=== PATIENT | female | born 2000 | race Caucasian/White ===

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

== ENCOUNTER 2020-10-27 14:50 | Emergency (ER) | payer OTHER ==
[2020-10-27 14:53] VITALS: BMI 25.7
[2020-10-27 15:55] LABS: BASO % 0.6 % (0-2.0); EOS % 0.7 % (0-4.5); HEMATOCRIT 37.3 % (32.4-45.2); HEMOGLOBIN 12.6 GM/dL (10.7-15.3); LYMPH % 11.8 % (8-40); MCH 29.8 pg (25.7-33.7); MCHC 33.9 g/dl (32.0-36.0); MEAN PLT VOLUME 8.5 fl (7.5-11.1); NEUT % 80.9 % (42.8-82.8); PLATELET COUNT 273 K/MM3 (134-434); RBC 4.24 M/mm3 (3.60-5.2); RDW 14.8 % (11.6-15.6); WHITE BLOOD COUNT 8.2 K/mm3 (4.0-10.0)
[2020-10-27 16:21] LABS: POTASSIUM 4.9 mmol/L (3.5-5.1)
[2020-10-27 16:23] LABS: ALBUMIN 3.3 g/dl (3.4-5.0); BLOOD UREA NITROGEN 4.8 mg/dL (7-18); CALCIUM 8.6 mg/dL (8.5-10.1)
[2020-10-27 16:27] LABS: CREATININE 0.5 mg/dL (0.55-1.3)
[2020-10-27 16:28] LABS: BILIRUBIN,TOTAL 0.3 mg/dL (0.2-1); TOT PROT 7.4 g/dl (6.4-8.2)
[2020-10-27 16:57] LABS: EPI CELLS 10 /uL (0-25.1); HYALINE CASTS 0 /uL (0-3.1); PH,URINE 6.5 (5.0-8.0); URINE APPEARANCE CLEAR; URINE BACTERIA 490 /uL (0-1359); URINE BILIRUBIN NEGATIVE (NEGATIVE); URINE COLOR YELLOW; URINE GLUCOSE (UA) NEGATIVE (NEGATIVE); URINE KETONE 2+ (NEGATIVE); URINE LEUK ESTERASE TRACE (NEGATIVE); URINE NITRITE NEGATIVE (NEGATIVE); URINE PROTEIN NEGATIVE (NEGATIVE); URINE RBC 2 /uL (0-23.9); URINE WBC 11 /uL (0-25.8)
[2020-10-27 18:13] VITALS: BP 110/68; PULSE 72; TEMP 98.5
== END 2020-10-27 18:13 | disposition home or self-care (01) ==
LOC: JER 14:50
DX: O20.8 Other hemorrhage in early pregnancy (principal)
CPT/HCPCS: 36415; 76801-TC; 80053; 81003; 84702; 85025; 86850; 86900; 86901; 87086; 87186; 99284-25

== ENCOUNTER 2020-12-18 01:05 | Emergency (ER) | payer OTHER ==
[2020-12-18 01:19] VITALS: BP 122/79; PULSE 96; TEMP 98.9; BMI 24.4
[2020-12-18] MEDS ORDERED: CALCIUM CARBONATE SUSPENSION - 500 MG/5 ML ML PO ONE (02:07)
[2020-12-18] MEDS ORDERED: SODIUM CHLORIDE 0.9% 500 ML INFUS.BAG IV ONE (02:08)
[2020-12-18 02:31] LABS: HEMATOCRIT 32.9 % (32.4-45.2); HEMOGLOBIN 11.7 GM/dL (10.7-15.3); MCH 31.3 pg (25.7-33.7); MCHC 35.6 g/dl (32.0-36.0); MEAN PLT VOLUME 7.7 fl (7.5-11.1); PLATELET COUNT 294 K/MM3 (134-434); RBC 3.74 M/mm3 (3.60-5.2); RDW 13.9 % (11.6-15.6); WHITE BLOOD COUNT 9.3 K/mm3 (4.0-10.0)
[2020-12-18 02:37] LABS: INR 0.92 (0.83-1.09); PROTHROMBIN TIME (PATIENT) 11.3 SEC (9.7-13.0)
[2020-12-18 02:39] LABS: ACTIVATED PTT 24.8 SECONDS (25.2-36.5)
[2020-12-18 02:47] LABS: POTASSIUM 3.4 mmol/L (3.5-5.1)
[2020-12-18] MEDS ORDERED: ACETAMINOPHEN 325 MG TABLET (FP) PO ONE (02:47)
[2020-12-18 02:49] LABS: CALCIUM 8.8 mg/dL (8.5-10.1)
[2020-12-18 02:50] LABS: BLOOD UREA NITROGEN 5.5 mg/dL (7-18)
[2020-12-18 02:52] LABS: CREATININE 0.5 mg/dL (0.55-1.3)
[2020-12-18 02:54] LABS: BILIRUBIN,TOTAL 0.3 mg/dL (0.2-1); TOT PROT 6.7 g/dl (6.4-8.2)
[2020-12-18 02:57] LABS: N-TERMINAL BNP 33.5 pg/ml (5-125)
[2020-12-18] MEDS ORDERED: ACETAMINOPHEN 325 MG TABLET (FP) ONE (02:59)
[2020-12-18] MEDS ORDERED: POTASSIUM CHLORIDE TABS 20 MEQ TABLET.ER (FP) PO ONE ×2 (03:05→03:06)
[2020-12-18 04:00] LABS: EPI CELLS >36 /uL (0-25.1); HYALINE CASTS 1 /uL (0-3.1); PH,URINE 7.5 (5.0-8.0); URINE APPEARANCE CLOUDY; URINE BACTERIA 2024 /uL (0-1359); URINE BILIRUBIN NEGATIVE (NEGATIVE); URINE COLOR YELLOW; URINE GLUCOSE (UA) NEGATIVE (NEGATIVE); URINE KETONE NEGATIVE (NEGATIVE); URINE LEUK ESTERASE 2+ (NEGATIVE); URINE NITRITE NEGATIVE (NEGATIVE); URINE PROTEIN NEGATIVE (NEGATIVE); URINE RBC 5 /uL (0-23.9); URINE UROBILINOGEN 0.2 mg/dL (0.2-1.0); URINE WBC 155 /uL (0-25.8)
== END 2020-12-18 03:44 | disposition home or self-care (01) ==
LOC: JER 01:05
DX: R07.89 Other chest pain (principal)
CPT/HCPCS: 36415; 80053; 81003; 82550; 83880; 84484; 85027; 85610; 85730; 93005; 93010; 99284-25

== ENCOUNTER 2021-05-17 12:39 | Inpatient (IN) | payer OTHER ==
[2021-05-17] MEDS ORDERED: ELECTROLYTE-148 SOLN 1,000 ML IV SCH (13:15)
[2021-05-17] MEDS ORDERED: DINOPROSTONE 10 MG VAGINAL SUPPOSITORY VG ONE (13:17)
[2021-05-17] MEDS ORDERED: AMPICILLIN - 2 GM in SODIUM CHLORIDE 100 ML IVPB ONE (13:51)
[2021-05-17 13:54] VITALS: BMI 31.0
[2021-05-17] MEDS ORDERED: AMPICILLIN SODIUM 2 GM VIAL ONE (13:55)
[2021-05-17] MEDS ORDERED: OXYTOCIN 30 UNITS in 0.9% NS 30 UNIT/500 ML INFUS.BAG IVPB SCH (14:00)
[2021-05-17 14:03] LABS: BASO % 0.4 % (0-2.0); EOS % 0.2 % (0-4.5); HEMATOCRIT 33.6 % (32.4-45.2); HEMOGLOBIN 11.5 GM/dL (10.7-15.3); LYMPH % 10.6 % (8-40); MCHC 34.2 g/dl (32.0-36.0); MEAN CELL VOLUME 90.7 fl (80-96); MEAN PLT VOLUME 8.7 fl (7.5-11.1); MONO % 5.8 % (3.8-10.2); PLATELET COUNT 179 10^3/uL (134-434); WHITE BLOOD COUNT 9.9 K/mm3 (4.0-10.0)
[2021-05-17 14:08] LABS: INR 0.8 (0.83-1.09); PROTHROMBIN TIME (PATIENT) 9.8 SEC (9.7-13.0)
[2021-05-17 14:11] LABS: ACTIVATED PTT 24.5 SECONDS (25.2-36.5)
[2021-05-17 14:29] LABS: ALBUMIN 1.7 g/dl (3.4-5.0); BLOOD UREA NITROGEN 13.7 mg/dL (7-18); CALCIUM 7.7 mg/dL (8.5-10.1)
[2021-05-17 14:32] LABS: CREATININE 0.6 mg/dL (0.55-1.3); URIC ACID 5.2 mg/dL (2.6-7.2)
[2021-05-17 14:33] LABS: BILIRUBIN,TOTAL 0.2 mg/dL (0.2-1)
[2021-05-17 16:34] LABS: URINE APPEARANCE TURBID; URINE BILIRUBIN SMALL (NEGATIVE); URINE COLOR DK YELLOW; URINE GLUCOSE (UA) NEGATIVE (NEGATIVE); URINE KETONE TRACE (NEGATIVE)
[2021-05-17 16:35] LABS: EPI CELLS 139.3 /uL (0-25.1); HYALINE CASTS 131.22 /uL (0-3.1); PH,URINE 6.5 (5.0-8.0); URINE BACTERIA 3228.3 /uL (0-1359); URINE LEUK ESTERASE 1+ (NEGATIVE); URINE NITRITE NEGATIVE (NEGATIVE); URINE PROTEIN 4+ (NEGATIVE); URINE RBC 12.9 /uL (0-23.9); URINE WBC 589.1 /uL (0-25.8)
[2021-05-17] MEDS ORDERED: AMPICILLIN SODIUM 1 GM VIAL ONE (17:53)
[2021-05-17] MEDS ORDERED: AMPICILLIN - 1 GM in SODIUM CHLORIDE 100 ML IVPB SCH (18:00)
[2021-05-17] MEDS ORDERED: PROMETHAZINE HCL 25 MG/1 ML VIAL IVPB ONE (18:29)
[2021-05-17] MEDS ORDERED: BUTORPHANOL TARTRATE 1 MG/ML VIAL IVPB ONE (18:29)
[2021-05-17] MEDS ORDERED: PROMETHAZINE HCL 25 MG/1 ML VIAL ONE (18:31)
[2021-05-17] MEDS ORDERED: BUTORPHANOL TARTRATE 2 MG/ML VIAL ONE (18:31)
[2021-05-17] MEDS ORDERED: OXYTOCIN 20 UNITS in 0.9% NS 20 UNIT/1,000 ML INFUS.BAG IV ONE (20:51)
[2021-05-17] MEDS ORDERED: METHYLERGONOVINE MALEATE 0.2 MG/1 ML AMP IM PRN (21:28)
[2021-05-17] MEDS ORDERED: BENZOCAINE 28 GM HEMORRHOIDAL OINTMENT TP PRN (21:28)
[2021-05-17] MEDS ORDERED: BENZOCAINE 20% 57 GM BOTTLE TP PRN (21:28)
[2021-05-17] MEDS ORDERED: BISACODYL 10 MG SUPP.RECT RC PRN (21:28)
[2021-05-17] MEDS ORDERED: WITCH HAZEL 50% (TUCKS) 40 PAD/JAR PAD TP PRN (21:28)
[2021-05-17] MEDS ORDERED: MISOPROSTOL 200 MCG TABLET NR ONE (21:29)
[2021-05-17] MEDS ORDERED: OXYTOCIN 20 UNITS in 0.9% NS 20 UNIT/1,000 ML INFUS.BAG IV SCH (21:30)
[2021-05-17] MEDS ORDERED: ACETAMINOPHEN 325 MG TABLET (FP) ONE (21:36)
[2021-05-17] MEDS ORDERED: IBUPROFEN 600 MG TABLET (FP) PO ONE (21:36)
[2021-05-17] MEDS ORDERED: NIFEdipine E.R. 30 MG TABLET ONE (21:37)
[2021-05-17] MEDS: NIFEdipine E.R. 30 MG TABLET PO SCH (21:40)
[2021-05-17] MEDS: ACETAMINOPHEN 325 MG TABLET (FP) PO PRN (21:40)
[2021-05-17] MEDS: IBUPROFEN 600 MG TABLET (FP) PO PRN (21:40)
[2021-05-18] MEDS: IBUPROFEN 600 MG TABLET (FP) PO PRN ×2 (08:31→22:39)
[2021-05-18] MEDS: ACETAMINOPHEN 325 MG TABLET (FP) PO PRN ×2 (08:32→22:38)
[2021-05-18 08:50] LABS: BASO % 0.4 % (0-2.0); EOS % 0.1 % (0-4.5); HEMATOCRIT 28.7 % (32.4-45.2); HEMOGLOBIN 9.8 GM/dL (10.7-15.3); MCHC 34.3 g/dl (32.0-36.0); MEAN CELL VOLUME 90.4 fl (80-96); MEAN PLT VOLUME 8.3 fl (7.5-11.1); MONO % 6.3 % (3.8-10.2); NEUT % 81.2 % (42.8-82.8); PLATELET COUNT 214 10^3/uL (134-434); RBC 3.17 M/mm3 (3.60-5.2); RDW 13.7 % (11.6-15.6); WHITE BLOOD COUNT 16.8 K/mm3 (4.0-10.0)
[2021-05-18] MEDS: NIFEdipine E.R. 30 MG TABLET PO SCH (10:03)
[2021-05-18] MEDS: PRENATAL VITAMINS W/ FOLIC ACID TABLET (FP) PO SCH (10:03)
[2021-05-18] MEDS ORDERED: SENNOSIDES/DOCUSATE COMBO (SENNA PLUS) TABLET (UD) PO PRN (22:00)
[2021-05-19 00:44] VITALS: TEMP 98.6
[2021-05-19 07:43] LABS: CALCIUM 8.2 mg/dL (8.5-10.1)
[2021-05-19 07:44] LABS: ALBUMIN 1.7 g/dl (3.4-5.0); BLOOD UREA NITROGEN 9.5 mg/dL (7-18)
[2021-05-19 07:47] LABS: CREATININE 0.4 mg/dL (0.55-1.3)
[2021-05-19 07:49] LABS: BILIRUBIN,TOTAL 0.2 mg/dL (0.2-1); TOT PROT 5.1 g/dl (6.4-8.2)
[2021-05-19] MEDS: NIFEdipine E.R. 30 MG TABLET PO SCH (09:40)
[2021-05-19] MEDS: PRENATAL VITAMINS W/ FOLIC ACID TABLET (FP) PO SCH (09:40)
[2021-05-19 11:02] VITALS: BP 127/83; PULSE 89
== END 2021-05-19 13:15 | disposition home or self-care (01) | DRG 560 ==
LOC: JLDR 12:39 → J3W 05-18 00:08
PROVIDERS: ADMIT Student in an Organized Health Care Education/Training Program; ATTEND Obstetrics & Gynecology
PROC: 10907ZC Drainage of Amniotic Fluid, Therapeutic from Products of Conception, Via Natural or Artificial Opening (ICD-10-PCS; principal; 2021-05-17)
PROC: 0W8NXZZ Division of Female Perineum, External Approach (ICD-10-PCS; 2021-05-17)
PROC: 0HQ9XZZ Repair Perineum Skin, External Approach (ICD-10-PCS; 2021-05-17)
PROC: 10E0XZZ Delivery of Products of Conception, External Approach (ICD-10-PCS; 2021-05-17)
DX: O14.14 Severe pre-eclampsia complicating childbirth (principal); Z3A.39 39 weeks gestation of pregnancy; Z37.0 Single live birth
CPT/HCPCS: 36415; 59409; 80053; 81003; 82570; 83615; 84156; 84550; 85025; 85610; 85730; 86780; 86850; 86900; 86901; C9803; U0003; U0005